=== PATIENT | male | born 1975 | race Caucasian/White ===

== ENCOUNTER 2021-09-27 18:33 | Day surgery (SDC) | payer SELFPAY ==
[~2021-09-27] VITALS: Ht 177.8 cm; Wt 84.2 kg
[2021-09-27] MEDS ORDERED: ONDANSETRON 4MG/2ML VIAL IV ONE (19:25)
[2021-09-27] MEDS ORDERED: MORPHINE 4 MG/ML 1ML VIAL/SYRINGE (J2270) IV PRN (19:25)
[2021-09-27 19:40] LABS: BASO % 0.2 % (0.0-1.0); EOS # 0.1 10^3/uL (0.0-0.5); EOS % 0.5 % (0.0-3.0); HEMATOCRIT 41.7 % (42.0-52.0); HEMOGLOBIN 14.2 g/dl (13.5-17.5); LYMPH # 1.5 10^3/uL (1.5-5.0); MEAN CORPUSCULAR HEMOGLOBIN 30.3 pg (27.0-33.0); MEAN CORPUSCULAR HGB CONC 34.1 g/dl (32.0-36.5); MEAN CORPUSCULAR VOLUME 88.9 fl (80.0-96.0); MONO # 0.7 10^3/uL (0.0-0.8); MONO % 5.7 % (2.0-8.0); NEUTROPHILS # 9.9 10^3/uL (1.5-8.5); NEUTROPHILS % 81.3 % (36.0-66.0); PLATELET COUNT, AUTOMATED 184 10^3/uL (150-450); RED BLOOD COUNT 4.69 10^6/uL (4.30-6.10); WHITE BLOOD COUNT 12.2 10^3/uL (4.0-10.0)
[2021-09-27] MEDS ORDERED: ISOVUE-370 76% 100ML VIAL As Ordered ONE (19:57)
[2021-09-27 20:17] LABS: ALBUMIN 4.2 GM/DL (3.2-5.2); BILIRUBIN,DIRECT 0.2 MG/DL (0.0-0.2); BILIRUBIN,TOTAL 0.6 MG/DL (0.2-1.0); TOTAL PROTEIN 7.2 GM/DL (6.4-8.2)
[2021-09-27] MEDS ORDERED: PIPERACILLIN/TAZOBACTAM SOD 3.375 GM in D5W MINI-BAG PLUS 50 ML IV ONE (21:00)
[2021-09-27] MEDS ORDERED: HOME MED LIST COMPLETE! XX SCH (21:35)
[2021-09-27] MEDS ORDERED: ONDANSETRON 4MG/2ML VIAL IV PRN (23:25)
[2021-09-27] MEDS ORDERED: MORPHINE 2 MG/ML 1ML VIAL (J2270) IV PRN (23:25)
[2021-09-27] MEDS ORDERED: KETOROLAC 30 MG/ML 1ML VIAL IV PRN (23:25)
[2021-09-27] MEDS ORDERED: LIDOCAINE 2% 100MG/5ML SDV (FOR ANES.) As Ordered ONE (23:32)
[2021-09-27] MEDS ORDERED: propofoL 200 MG/20 ML VIAL As Ordered ONE (23:32)
[2021-09-27] MEDS ORDERED: ROCURONIUM BROMIDE 50 MG/5 ML VIAL As Ordered ONE (23:32)
[2021-09-27] MEDS ORDERED: MIDAZOLAM INJ 2MG/2ML VIAL (J2250 PER 1MG) As Ordered ONE (23:32)
[2021-09-27] MEDS ORDERED: fentaNYL 250 MCG/5 ML INJECTION (J3010) As Ordered ONE (23:32)
[2021-09-28] VITALS (7 sets, daily range): BP systolic 103–180; BP diastolic 55–59
[2021-09-28] MEDS ORDERED: BUPIVACAINE HCL 0.25% 30ML VIAL As Ordered ONE (00:03)
[2021-09-28] MEDS ORDERED: dexameTHASONE 4 MG/ML 1ML VIAL (J1100 PER 1MG) As Ordered ONE (00:47)
[2021-09-28] MEDS ORDERED: METOCLOPRAMIDE INJ 10MG/2ML VIAL (J2765 PER 1) As Ordered ONE (01:02)
[2021-09-28] MEDS ORDERED: ONDANSETRON 4MG/2ML VIAL As Ordered ONE (01:02)
[2021-09-28] MEDS ORDERED: KETOROLAC 60MG 2ML VIAL As Ordered ONE (01:02)
[2021-09-28] MEDS ORDERED: ACETAMINOPHEN 1000MG 100ML IV BTL (OFIRMEV) (J0131 PER 10MG) As Ordered ONE (01:02)
[2021-09-28] MEDS ORDERED: SUGAMMADEX SODIUM 500 MG/5 ML VIAL (BRIDION) As Ordered ONE (01:02)
[2021-09-28] MEDS ORDERED: NORCO, ANEXSIA 5/325MG TABLET (HYDROcodone/ACETAMINOPHEN) PO PRN (02:25)
[2021-09-28] MEDS ORDERED: ACETAMINOPHEN TAB 650MG DOSE (2X325MG) PO PRN (02:25)
[2021-09-28] MEDS ORDERED: IBUPROFEN 600MG TAB PO PRN (02:25)
[2021-09-28] MEDS ORDERED: ONDANSETRON 4MG/2ML VIAL IV PRN (03:05)
[2021-09-28] MEDS ORDERED: HYDROMORPHONE HCL 0.5 MG/ 0.5 ML SYRINGE (J1170 PER 1) IV PRN (03:05)
[2021-09-28] MEDS ORDERED: oxyCODONE 5MG TAB PO PRN (03:05)
[2021-09-28] MEDS ORDERED: LR 1,000 ML IV SCH (03:05)
[2021-09-28] MEDS ORDERED: fentaNYL 100 MCG/2 ML INJECTION (J3010) IV PRN (03:05)
[2021-09-28] MEDS: PIPERACILLIN/TAZOBACTAM SOD 3.375 GM in D5W MINI-BAG PLUS 50 ML IV SCH ×2 (05:49→11:45)
[2021-09-28] MEDS: NS 1,000 ML IV SCH ×2 (05:50→07:25)
== END 2021-09-28 17:00 | disposition home or self-care (01) ==
LOC: M ED 18:33 → M SDC 23:23 → M MS5PR 09-28 03:04 → M SDC 09-28 17:00
PROVIDERS: ATTEND Surgery
DX: K35.30 Acute appendicitis with localized peritonitis, without perforation or gangrene (principal)
CPT/HCPCS: 44970; 74177; 80047; 80076; 81001; 83605; 83690; 85025; 87040; 87798; 88304; 96365; 96366; 96375; 99285; J0131; J1100; J1885; J2250; J2270; J2405; J2543; J2765; J3010; Q9967